=== PATIENT | male | born 1990 | race Two or more races ===

== ENCOUNTER 2017-06-07 12:48 | Emergency (ER) | payer MEDICAID ==
[~2017-06-07] VITALS: Ht 180.3 cm; Wt 72.4 kg
[2017-06-07 13:48] LABS: HEMATOCRIT 46.2 % (39.2-51.8); HEMOGLOBIN 15.5 g/dL (13.7-18.0); WHITE BLOOD COUNT 7.3 x10^3/uL (3.4-10)
[2017-06-07 14:00] LABS: BLOOD UREA NITROGEN 13 mg/dL (7-18)
[2017-06-07 14:03] LABS: ASPARTATE AMINO TRANSFERASE 30 U/L (15-37)
[2017-06-07 16:38] LABS: IS PT STATUS REG ER OR PRE ER? YES
[2017-06-07 17:41] VITALS: BP 122/93
== END 2017-06-07 17:43 | disposition home or self-care (01) ==
LOC: ED 17:30
DX: R07.89 Other chest pain (principal); F15.10 Other stimulant abuse, uncomplicated; F41.9 Anxiety disorder, unspecified; Z88.0 Allergy status to penicillin
CPT/HCPCS: 36415; 71020; 80053; 83690; 84484; 85025; 93005; 99285

== ENCOUNTER 2017-06-17 21:52 | Inpatient (IN) | payer MEDICAID ==
[~2017-06-17] VITALS: Ht 180.3 cm; Wt 79.9 kg
[2017-06-17] MEDS ORDERED: ABAC1TAB14 PO (22:21)
[2017-06-17] MEDS ORDERED: MORPHINE SULFATE 4 MG/ML, 1ML ONE (22:24)
[2017-06-17] MEDS ORDERED: ONDANSETRON 2MG/ML, 2ML ONE (22:24)
[2017-06-17] MEDS ORDERED: ONDANSETRON 2MG/ML, 2ML IVPush ONE (22:30)
[2017-06-17] MEDS ORDERED: METOCLOPRAMIDE 5 MG/ML, 2ML IVPush ONE (22:30)
[2017-06-17] MEDS ORDERED: DIPHENHYDRAMINE 50 MG/ML, 1ML IVPush ONE (22:30)
[2017-06-17] MEDS ORDERED: MORPHINE SULFATE 4 MG/ML, 1ML IVPush PRN (22:30)
[2017-06-17] MEDS ORDERED: METOCLOPRAMIDE 5 MG/ML, 2ML ONE (22:45)
[2017-06-17] MEDS ORDERED: DIPHENHYDRAMINE 50 MG/ML, 1ML ONE (22:45)
[2017-06-17 22:48] LABS: HEMATOCRIT 43.1 % (39.2-51.8); HEMOGLOBIN 14.4 g/dL (13.7-18.0); WHITE BLOOD COUNT 11.8 x10^3/uL (3.4-10)
[2017-06-17 23:00] LABS: ASPARTATE AMINO TRANSFERASE 40 U/L (15-37); BLOOD UREA NITROGEN 26 mg/dL (7-18)
[2017-06-18] MEDS ORDERED: SODIUM CHLORIDE 0.9% 1,000ML IVBOLUS ONE (00:30)
[2017-06-18 01:49] LABS: DAU SCREEN DISCLAIMER
[2017-06-18] MEDS ORDERED: ONDANSETRON 2MG/ML, 2ML IVPush PRN (02:30)
[2017-06-18] MEDS ORDERED: ONDANSETRON ODT 4 MG PO PRN (02:30)
[2017-06-18] MEDS ORDERED: BISACODYL 10 MG SUPP PR PRN (02:30)
[2017-06-18] MEDS ORDERED: morphine SULFATE 10 MG/ML, 1ML IVPush PRN (02:30)
[2017-06-18] MEDS ORDERED: LABETALOL 5MG/ML, 20ML IVPush PRN (02:30)
[2017-06-18] MEDS ORDERED: PHARMACY MAY ADJ FOR RENAL FX MC PRN (02:30)
[2017-06-18] MEDS ORDERED: GUAIFENESIN/DM 200-20MG, 10ML UDC PO PRN (02:30)
[2017-06-18 02:52] VITALS: BP 144/89
[2017-06-18] MEDS: SODIUM CHLORIDE 0.9% 1,000 ML IV SCH ×3 (04:13→21:42)
[2017-06-18 06:26] LABS: ASPARTATE AMINO TRANSFERASE 29 U/L (15-37); BLOOD UREA NITROGEN 24 mg/dL (7-18)
[2017-06-18 06:36] LABS: HEMATOCRIT 39.5 % (39.2-51.8); HEMOGLOBIN 13.2 g/dL (13.7-18.0)
[2017-06-18 07:02] VITALS: BP 124/72
[2017-06-18] MEDS ORDERED: Abacavir/Dolutegravir/Lamivudi (Triumeq Tablet) HOMEMEDPO SCH (09:00)
[2017-06-18] MEDS: HYDROcodone/APAP 5/325 TABLET PO PRN ×2 (09:12→14:21)
[2017-06-18] MEDS: HEPARIN 5,000 UNITS/ML, 1ML SQ SCH ×2 (09:13→16:35)
[2017-06-18] MEDS: SENNA/DOCUSATE TABLET PO SCH (09:13)
[2017-06-18] MEDS ORDERED: PHARMACY INSTRUCTION MC PRN (10:00)
[2017-06-18] MEDS ORDERED: GADOBUTROL 7.5 MMOL/7.5 ML PFS ONE (10:33)
[2017-06-18] MEDS: NICOTINE 14MG/24 HR PATCH.TD24 TD SCH (11:19)
[2017-06-18] MEDS: ABACAVIR 300 MG TABLET PO SCH (11:20)
[2017-06-18] MEDS: LAMIVUDINE 150 MG TABLET PO SCH (11:20)
[2017-06-18 16:23] VITALS: BP 141/75
[2017-06-18 18:52] VITALS: BP 142/88
[2017-06-19] MEDS: HEPARIN 5,000 UNITS/ML, 1ML SQ SCH ×4 (00:15→15:04)
[2017-06-19 01:41] VITALS: BP 141/89
[2017-06-19 04:41] LABS: HEMATOCRIT 38.6 % (39.2-51.8); HEMOGLOBIN 12.6 g/dL (13.7-18.0); WHITE BLOOD COUNT 7.4 x10^3/uL (3.4-10)
[2017-06-19 04:51] LABS: BLOOD UREA NITROGEN 19 mg/dL (7-18)
[2017-06-19] MEDS: SODIUM CHLORIDE 0.9% 1,000 ML IV SCH ×3 (05:37→22:11)
[2017-06-19 09:00] VITALS: BP 150/92
[2017-06-19] MEDS: HYDROcodone/APAP 5/325 TABLET PO PRN ×3 (09:53→22:10)
[2017-06-19] MEDS: LAMIVUDINE 150 MG TABLET PO SCH (09:53)
[2017-06-19] MEDS: ABACAVIR 300 MG TABLET PO SCH (09:53)
[2017-06-19] MEDS: SENNA/DOCUSATE TABLET PO SCH (09:53)
[2017-06-19] MEDS: NICOTINE 14MG/24 HR PATCH.TD24 TD SCH (09:53)
[2017-06-19 12:48] VITALS: BP 154/89
[2017-06-19 14:31] VITALS: BP 150/90
[2017-06-19 19:35] VITALS: BP 160/110
[2017-06-20 00:07] VITALS: BP 130/79
[2017-06-20] MEDS: HYDROcodone/APAP 5/325 TABLET PO PRN ×3 (02:22→20:55)
[2017-06-20 05:20] LABS: HEMATOCRIT 35.1 % (39.2-51.8); HEMOGLOBIN 11.6 g/dL (13.7-18.0); WHITE BLOOD COUNT 6.4 x10^3/uL (3.4-10)
[2017-06-20 05:30] LABS: BLOOD UREA NITROGEN 14 mg/dL (7-18)
[2017-06-20 05:32] LABS: ASPARTATE AMINO TRANSFERASE 25 U/L (15-37)
[2017-06-20] MEDS: SODIUM CHLORIDE 0.9% 1,000 ML IV SCH ×3 (05:46→20:55)
[2017-06-20 06:59] VITALS: BP 132/86
[2017-06-20] MEDS: HEPARIN 5,000 UNITS/ML, 1ML SQ SCH ×4 (08:00→22:30)
[2017-06-20] MEDS: SENNA/DOCUSATE TABLET PO SCH (09:00)
[2017-06-20] MEDS: ABACAVIR 300 MG TABLET PO SCH (09:03)
[2017-06-20] MEDS: NICOTINE 14MG/24 HR PATCH.TD24 TD SCH (09:04)
[2017-06-20] MEDS: LAMIVUDINE 150 MG TABLET PO SCH (09:04)
[2017-06-20 12:45] VITALS: BP 148/90
[2017-06-20 17:52] LABS: GLUCOSE, CSF 47 mg/dL (40-80)
[2017-06-20 20:45] VITALS: BP 159/101
[2017-06-21] MEDS: SODIUM CHLORIDE 0.9% 1,000 ML IV SCH ×3 (05:35→22:02)
[2017-06-21 08:00] VITALS: BP 148/92
[2017-06-21] MEDS: HEPARIN 5,000 UNITS/ML, 1ML SQ SCH ×3 (08:00→23:09)
[2017-06-21 08:18] LABS: BLOOD UREA NITROGEN 13 mg/dL (7-18)
[2017-06-21 08:20] LABS: HEMATOCRIT 35.3 % (39.2-51.8); HEMOGLOBIN 11.6 g/dL (13.7-18.0); WHITE BLOOD COUNT 7.3 x10^3/uL (3.4-10)
[2017-06-21] MEDS: LAMIVUDINE 150 MG TABLET PO SCH (09:00)
[2017-06-21] MEDS: ABACAVIR 300 MG TABLET PO SCH (09:00)
[2017-06-21] MEDS: SENNA/DOCUSATE TABLET PO SCH (09:00)
[2017-06-21] MEDS: NICOTINE 14MG/24 HR PATCH.TD24 TD SCH (10:00)
[2017-06-21 14:00] VITALS: BP 124/73
[2017-06-21 18:43] VITALS: BP_SYST 153; BP_SYST 159; BP_DIAS 83; BP_DIAS 90
[2017-06-21] MEDS: HYDROcodone/APAP 5/325 TABLET PO PRN (22:02)
[2017-06-22 01:15] VITALS: BP 147/80
[2017-06-22 05:45] LABS: BLOOD UREA NITROGEN 14 mg/dL (7-18)
[2017-06-22] MEDS: SODIUM CHLORIDE 0.9% 1,000 ML IV SCH (06:31)
[2017-06-22 07:27] VITALS: BP 145/93
[2017-06-22] MEDS: HEPARIN 5,000 UNITS/ML, 1ML SQ SCH ×2 (08:00→15:57)
[2017-06-22] MEDS: SENNA/DOCUSATE TABLET PO SCH (08:42)
[2017-06-22] MEDS: ABACAVIR 300 MG TABLET PO SCH (08:43)
[2017-06-22] MEDS: LAMIVUDINE 150 MG TABLET PO SCH (08:44)
[2017-06-22] MEDS: NICOTINE 14MG/24 HR PATCH.TD24 TD SCH (10:28)
[2017-06-22 14:35] VITALS: BP 163/94
[2017-06-22 18:50] VITALS: BP 156/92
[2017-06-22] MEDS: HYDROcodone/APAP 5/325 TABLET PO PRN (21:01)
[2017-06-23 01:15] VITALS: BP 145/91
[2017-06-23 05:20] LABS: BLOOD UREA NITROGEN 20 mg/dL (7-18)
[2017-06-23 05:30] LABS: HEMATOCRIT 38.6 % (39.2-51.8); HEMOGLOBIN 12.8 g/dL (13.7-18.0); WHITE BLOOD COUNT 9.3 x10^3/uL (3.4-10)
[2017-06-23 08:02] VITALS: BP 149/90
[2017-06-23] MEDS: HEPARIN 5,000 UNITS/ML, 1ML SQ SCH ×4 (09:32→23:20)
[2017-06-23] MEDS: LAMIVUDINE 150 MG TABLET PO SCH (09:33)
[2017-06-23] MEDS: SENNA/DOCUSATE TABLET PO SCH (09:34)
[2017-06-23] MEDS: ABACAVIR 300 MG TABLET PO SCH (09:34)
[2017-06-23] MEDS: NICOTINE 14MG/24 HR PATCH.TD24 TD SCH (09:35)
[2017-06-23] MEDS: CYCLOBENZAPRINE 10 MG TABLET PO SCH ×3 (13:26→23:19)
[2017-06-23 14:00] VITALS: BP 150/85
[2017-06-23] MEDS ORDERED: AMLODIPINE 5 MG TABLET PO ONE (16:30)
[2017-06-23] MEDS: SODIUM CHLORIDE 0.9% 1,000 ML IV SCH ×2 (17:01→20:10)
[2017-06-23 18:56] VITALS: BP 154/92
[2017-06-23] MEDS: HYDROcodone/APAP 5/325 TABLET PO PRN (23:19)
[2017-06-24 01:15] VITALS: BP 143/87
[2017-06-24] MEDS: SODIUM CHLORIDE 0.9% 1,000 ML IV SCH ×4 (02:50→22:50)
[2017-06-24 05:34] LABS: BLOOD UREA NITROGEN 25 mg/dL (7-18)
[2017-06-24] MEDS: HEPARIN 5,000 UNITS/ML, 1ML SQ SCH ×3 (08:00→23:09)
[2017-06-24 08:10] VITALS: BP 147/86
[2017-06-24] MEDS: SENNA/DOCUSATE TABLET PO SCH (09:00)
[2017-06-24] MEDS: LAMIVUDINE 150 MG TABLET PO SCH (09:45)
[2017-06-24] MEDS: CYCLOBENZAPRINE 10 MG TABLET PO SCH ×3 (09:45→20:59)
[2017-06-24] MEDS: ABACAVIR 300 MG TABLET PO SCH (09:45)
[2017-06-24] MEDS ORDERED: CYCL-259 PO (09:49)
[2017-06-24] MEDS: NICOTINE 14MG/24 HR PATCH.TD24 TD SCH (10:00)
[2017-06-24] MEDS ORDERED: OMNIPAQUE 350 MG/ML, 100ML BOTTLE ONE (11:24)
[2017-06-24 15:47] VITALS: BP 140/84
[2017-06-24 20:55] VITALS: BP 154/93
[2017-06-25 02:04] VITALS: BP 117/66
[2017-06-25] MEDS: SODIUM CHLORIDE 0.9% 1,000 ML IV SCH ×2 (05:20→12:10)
[2017-06-25 06:10] LABS: HEMATOCRIT 40.2 % (39.2-51.8); HEMOGLOBIN 13.3 g/dL (13.7-18.0); WHITE BLOOD COUNT 9.6 x10^3/uL (3.4-10)
[2017-06-25 06:17] LABS: BLOOD UREA NITROGEN 22 mg/dL (7-18)
[2017-06-25 07:13] VITALS: BP 123/71
[2017-06-25] MEDS: HEPARIN 5,000 UNITS/ML, 1ML SQ SCH (08:00)
[2017-06-25] MEDS: SENNA/DOCUSATE TABLET PO SCH (09:00)
[2017-06-25] MEDS: CYCLOBENZAPRINE 10 MG TABLET PO SCH (09:49)
[2017-06-25] MEDS: NICOTINE 14MG/24 HR PATCH.TD24 TD SCH (09:49)
[2017-06-25] MEDS: ABACAVIR 300 MG TABLET PO SCH (09:49)
[2017-06-25] MEDS: LAMIVUDINE 150 MG TABLET PO SCH (09:49)
[2017-06-25] MEDS ORDERED: PNEUMOCOCCAL 23 VACCINE IM-VACC ONE (12:00)
[2017-06-25 13:04] VITALS: BP 145/94
== END 2017-06-25 13:26 | disposition home or self-care (01) | DRG 682 ==
LOC: ED 22:19 → 4NOR 06-18 01:18 → 4WST 06-19 13:16
PROVIDERS: ADMIT Hospitalist; ATTEND Hospitalist
PROC: 009U3ZZ Drainage of Spinal Canal, Percutaneous Approach (ICD-10-PCS; principal; 2017-06-21)
DX: N17.0 Acute kidney failure with tubular necrosis (principal); B20 Human immunodeficiency virus [HIV] disease; G93.5 Compression of brain; E43 Unspecified severe protein-calorie malnutrition; D47.3 Essential (hemorrhagic) thrombocythemia; E11.9 Type 2 diabetes mellitus without complications; I10 Essential (primary) hypertension; E87.1 Hypo-osmolality and hyponatremia; D64.9 Anemia, unspecified; F17.210 Nicotine dependence, cigarettes, uncomplicated; H53.149 Visual discomfort, unspecified; G43.009 Migraine without aura, not intractable, without status migrainosus; Z80.0 Family history of malignant neoplasm of digestive organs; Z82.3 Family history of stroke; Z82.49 Family history of ischemic heart disease and other diseases of the circulatory system; Z88.0 Allergy status to penicillin; Z88.1 Allergy status to other antibiotic agents; Z68.24 Body mass index [BMI] 24.0-24.9, adult
CPT/HCPCS: 36415; 62270; 70450; 70491; 70553; 71010; 76770; 80048; 80053; 80061; 80307; 81003; 82040; 82570; 82945; 83036; 83735; 84156; 84157; 84300; 85025; 85610; 86788; 86789; 87040; 87210; 87529; 89051; 90732; 96361; 96374; 96375; A9585; J1644; J2405; Q9967; J1200; J2765; J7030

== ENCOUNTER 2017-12-31 13:43 | Inpatient (IN) | payer MEDICAID ==
[~2017-12-31] VITALS: Ht 180.3 cm; Wt 76.8 kg
[~2017-12-31 13:43] MED LIST: ABAC1TAB14 PO; CYCL-259 PO
[2017-12-31] MEDS ORDERED: SODIUM CHLORIDE 0.9% 1,000 ML IV ONE (14:32)
[2017-12-31] MEDS ORDERED: ONDANSETRON 2MG/ML, 2ML ONE (14:55)
[2017-12-31] MEDS ORDERED: HYDROmorphone 1 MG/ML, 1ML ONE (14:56)
[2017-12-31 15:00] LABS: MICROSCOPIC AUTO
[2017-12-31] MEDS ORDERED: SODIUM CHLORIDE FLUSH 10ML SYR IVF ONE (15:00)
[2017-12-31] MEDS ORDERED: ONDANSETRON 2MG/ML, 2ML IVPush ONE (15:00)
[2017-12-31] MEDS ORDERED: HYDROmorphone 1 MG/ML, 1ML IVPush PRN (15:00)
[2017-12-31] MEDS ORDERED: SODIUM CHLORIDE 0.9% 1,000ML IVBOLUS ONE (15:00)
[2017-12-31 15:03] LABS: CULTURE INDICATED? YES
[2017-12-31 15:04] LABS: BASOPHILS # (AUTO) 0.05 x10^3/uL (0-0.1); BASOPHILS % (AUTO) 1 % (0-1); EOSINOPHILS # (AUTO) 0.11 x10^3/uL (0-0.4); EOSINOPHILS % (AUTO) 1 % (1-7); LYMPHOCYTES # (AUTO) 2.34 x10^3/uL (1-3.4); LYMPHOCYTES % (AUTO) 22 % (22-44); MD NO; MEAN CORPUSCULAR HEMOGLOBIN 30.4 pg (27.5-34.5); MEAN CORPUSCULAR HGB CONC 33.5 g/dL (33.2-36.2); MEAN CORPUSCULAR VOLUME 90.8 fL (81-97); MONOCYTES % (AUTO) 8 % (2-9); NEUTROPHILS # (AUTO) 7.41 x10^3/uL (1.8-6.8); NEUTROPHILS % (AUTO) 69 % (42-75); PLATELET COUNT 516 x10^3/uL (130-400); RED BLOOD COUNT 4.79 x10^6/uL (4.38-5.82); RED CELL DISTRIBUTION WIDTH 15.2 % (9.4-14.8)
[2017-12-31 15:13] LABS: ALBUMIN 3.5 g/dL (3.4-5.0); ANION GAP 8 mmol/L (5-15); CHLORIDE 106 mmol/L (98-107); CREATININE 0.78 mg/dL (0.7-1.3)
[2017-12-31 15:20] LABS: ALANINE AMINOTRANSFERASE 1228 U/L (12-78); ALKALINE PHOSPHATASE 133 U/L (45-117); TOTAL PROTEIN 7.7 g/dL (6.4-8.2)
[2017-12-31 15:59] LABS: INTERNATIONAL NORMALIZED RATIO 0.93 (0.93-1.1); PROTHROMBIN TIME 9.7 Seconds (9.6-11.5)
[2017-12-31] MEDS ORDERED: POLYETHYLENE GLYCOL 17 GM PACKET PO PRN (17:00)
[2017-12-31] MEDS ORDERED: DOCUSATE 100 MG CAPSULE PO PRN (17:00)
[2017-12-31] MEDS ORDERED: ONDANSETRON 2MG/ML, 2ML IVPush PRN (17:00)
[2017-12-31 18:07] VITALS: BP 133/80
[2017-12-31 18:35] VITALS: BP 125/79
[2017-12-31] MEDS: FAMOTIDINE 20 MG TABLET PO SCH (21:44)
[2017-12-31] MEDS: NS + 20MEQ KCL 1,000 ML IV SCH (21:44)
[2017-12-31] MEDS: ENOXAPARIN 40 MG/0.4 ML SQ SCH (21:45)
[2017-12-31] MEDS: OXYcodone IR 5MG TABLET PO PRN (21:49)
[2018-01-01 02:26] VITALS: BP 110/60
[2018-01-01 05:46] LABS: CHLORIDE 106 mmol/L (98-107)
[2018-01-01 05:49] LABS: ALANINE AMINOTRANSFERASE 841 U/L (12-78); ALBUMIN 2.7 g/dL (3.4-5.0); ALKALINE PHOSPHATASE 119 U/L (45-117); ANION GAP 8 mmol/L (5-15); BILIRUBIN,TOTAL 0.9 mg/dL (0.2-1.0); CALCIUM 8.2 mg/dL (8.5-10.1); CREATININE 0.76 mg/dL (0.7-1.3); TOTAL PROTEIN 6.2 g/dL (6.4-8.2)
[2018-01-01] MEDS: NS + 20MEQ KCL 1,000 ML IV SCH (06:17)
[2018-01-01 06:58] VITALS: BP 128/79
[2018-01-01] MEDS: FAMOTIDINE 20 MG TABLET PO SCH ×2 (07:41→20:26)
[2018-01-01] MEDS: LAMIVUDI HOMEMEDPO SCH (07:41)
[2018-01-01] MEDS: ABACAVIR HOMEMEDPO SCH (07:41)
[2018-01-01] MEDS: DOLUTEGRAVIR HOMEMEDPO SCH (07:41)
[2018-01-01 13:11] VITALS: BP 136/80
[2018-01-01 19:22] VITALS: BP 121/72
[2018-01-01] MEDS: ENOXAPARIN 40 MG/0.4 ML SQ SCH (20:32)
[2018-01-02 00:03] VITALS: BP 144/85
[2018-01-02] MEDS ORDERED: DIPHENHYDRAMINE 50 MG CAPSULE PO PRN (01:00)
[2018-01-02 05:33] LABS: CALCIUM 8.9 mg/dL (8.5-10.1); CHLORIDE 107 mmol/L (98-107)
[2018-01-02 05:39] LABS: ALANINE AMINOTRANSFERASE 685 U/L (12-78); ALBUMIN 3.1 g/dL (3.4-5.0); ALKALINE PHOSPHATASE 142 U/L (45-117); ANION GAP 8 mmol/L (5-15); BILIRUBIN,TOTAL 0.4 mg/dL (0.2-1.0); CREATININE 0.72 mg/dL (0.7-1.3); TOTAL PROTEIN 7.1 g/dL (6.4-8.2)
[2018-01-02 07:37] VITALS: BP 124/79
[2018-01-02] MEDS: FAMOTIDINE 20 MG TABLET PO SCH ×2 (09:02→21:16)
[2018-01-02] MEDS: LAMIVUDI HOMEMEDPO SCH (09:03)
[2018-01-02] MEDS: DOLUTEGRAVIR HOMEMEDPO SCH (09:03)
[2018-01-02] MEDS: ABACAVIR HOMEMEDPO SCH (09:03)
[2018-01-02 12:25] LABS: ALANINE AMINOTRANSFERASE 638 U/L (12-78); ALBUMIN 3.1 g/dL (3.4-5.0); ANION GAP 8 mmol/L (5-15); CHLORIDE 103 mmol/L (98-107); CREATININE 0.86 mg/dL (0.7-1.3)
[2018-01-02 12:27] LABS: ALKALINE PHOSPHATASE 126 U/L (45-117); BILIRUBIN,TOTAL 0.4 mg/dL (0.2-1.0); TOTAL PROTEIN 7.2 g/dL (6.4-8.2)
[2018-01-02 13:32] VITALS: BP 144/84
[2018-01-02] MEDS: NICOTINE 21 MG/24 HR PATCH.TD24 TD SCH (17:26)
[2018-01-02 20:03] VITALS: BP 150/88
[2018-01-02] MEDS: ENOXAPARIN 40 MG/0.4 ML SQ SCH (21:15)
[2018-01-02] MEDS: DIPHENHYDRAMINE 50 MG CAPSULE PO PRN (21:16)
[2018-01-02] MEDS: MELATONIN 5 MG TABLET PO SCH (21:16)
[2018-01-03 02:11] VITALS: BP 132/74
[2018-01-03 07:25] VITALS: BP 125/78
[2018-01-03] MEDS: FAMOTIDINE 20 MG TABLET PO SCH ×2 (10:27→20:04)
[2018-01-03] MEDS: NICOTINE 21 MG/24 HR PATCH.TD24 TD SCH (10:28)
[2018-01-03 12:25] VITALS: BP 139/100
[2018-01-03] MEDS ORDERED: LOPERAMIDE 2 MG CAPSULE PO PRN (14:00)
[2018-01-03] MEDS ORDERED: CHOLESTYRAMINE LIGHT 4GM PACKET PO SCH (17:00)
[2018-01-03 19:33] LABS: CLOSTRIDIUM DIFFICILE ANTIGEN NEGATIVE; CLOSTRIDIUM DIFFICILE TOXIN NEGATIVE (Negative)
[2018-01-03 20:00] VITALS: BP 157/100
[2018-01-03] MEDS: ENOXAPARIN 40 MG/0.4 ML SQ SCH (20:04)
[2018-01-03] MEDS: DIPHENHYDRAMINE 50 MG CAPSULE PO PRN (20:04)
[2018-01-03] MEDS: MELATONIN 5 MG TABLET PO SCH (20:04)
[2018-01-04 01:18] VITALS: BP 149/96
[2018-01-04 07:09] LABS: ALANINE AMINOTRANSFERASE 402 U/L (12-78); ALBUMIN 3.4 g/dL (3.4-5.0); ANION GAP 6 mmol/L (5-15); CALCIUM 9.5 mg/dL (8.5-10.1); CHLORIDE 105 mmol/L (98-107); CREATININE 0.79 mg/dL (0.7-1.3)
[2018-01-04 07:11] LABS: ALKALINE PHOSPHATASE 105 U/L (45-117); BILIRUBIN,TOTAL 0.5 mg/dL (0.2-1.0); TOTAL PROTEIN 7.5 g/dL (6.4-8.2)
[2018-01-04] MEDS ORDERED: IBUP-1221 PO (07:15)
[2018-01-04] MEDS ORDERED: ACET325T26 PO (07:15)
[2018-01-04] MEDS: FAMOTIDINE 20 MG TABLET PO SCH (09:04)
[2018-01-04] MEDS: NICOTINE 21 MG/24 HR PATCH.TD24 TD SCH (09:04)
[2018-01-04] MEDS: OXYcodone IR 5MG TABLET PO PRN (09:08)
== END 2018-01-04 12:10 | disposition home or self-care (01) | DRG 443 ==
LOC: SUATTDRO 16:33 → ED 16:35 → EDIP 16:39 → ED 16:52 → 3NE 17:17 → DCLOUNGE 01-04 11:58
PROVIDERS: ADMIT Family Medicine; ATTEND Family Medicine
DX: B17.9 Acute viral hepatitis, unspecified (principal); F17.200 Nicotine dependence, unspecified, uncomplicated; I10 Essential (primary) hypertension; G43.909 Migraine, unspecified, not intractable, without status migrainosus; R31.9 Hematuria, unspecified; T50.995A Adverse effect of other drugs, medicaments and biological substances, initial encounter; R30.0 Dysuria; Z59.0 Homelessness; Z79.899 Other long term (current) drug therapy; Y92.89 Other specified places as the place of occurrence of the external cause; Z88.0 Allergy status to penicillin; Z88.1 Allergy status to other antibiotic agents
CPT/HCPCS: 36415; 76700; 80053; 81001; 82140; 83605; 83690; 83735; 85025; 85610; 85730; 86704; 86706; 86708; 86803; 87086; 87324; 87340; 87522; 96361; 96374; 96375; J1170; J1650; J2405; J3480; J7030

== ENCOUNTER 2018-01-22 10:30 | Emergency (ER) | payer MEDICAID ==
[~2018-01-22] VITALS: Ht 180.3 cm; Wt 74.0 kg
[~2018-01-22 10:30] MED LIST changes: +ACET325T26 PO; +IBUP-1221 PO
[2018-01-22] MEDS ORDERED: ABAC1TAB14 PO (11:51)
[2018-01-22 12:59] VITALS: BP 128/84
== END 2018-01-22 14:11 | disposition home or self-care (01) ==
LOC: ED 14:05
DX: S00.93XA Contusion of unspecified part of head, initial encounter (principal); G43.909 Migraine, unspecified, not intractable, without status migrainosus; J32.2 Chronic ethmoidal sinusitis; J32.3 Chronic sphenoidal sinusitis; I10 Essential (primary) hypertension; Y04.0XXA Assault by unarmed brawl or fight, initial encounter; Y93.89 Activity, other specified; Y99.8 Other external cause status; Y92.89 Other specified places as the place of occurrence of the external cause
CPT/HCPCS: 70450; 72125; 99284

== ENCOUNTER 2018-03-06 19:59 | Emergency (ER) | payer MEDICAID ==
[~2018-03-06] VITALS: Ht 180.3 cm; Wt 78.0 kg
[2018-03-06 20:30] LABS: BASOPHILS # (AUTO) 0.04 x10^3/uL (0-0.1); BASOPHILS % (AUTO) 1 % (0-1); EOSINOPHILS % (AUTO) 2 % (1-7); LYMPHOCYTES # (AUTO) 3.44 x10^3/uL (1-3.4); LYMPHOCYTES % (AUTO) 37 % (22-44); MD NO; MEAN CORPUSCULAR HEMOGLOBIN 31.5 pg (27.5-34.5); MEAN CORPUSCULAR HGB CONC 34.1 g/dL (33.2-36.2); MEAN CORPUSCULAR VOLUME 92.4 fL (81-97); MEAN PLATELET VOLUME 6.5 fL (7.4-10.4); MONOCYTES # (AUTO) 0.62 x10^3/uL (0.2-0.8); MONOCYTES % (AUTO) 7 % (2-9); NEUTROPHILS # (AUTO) 4.95 x10^3/uL (1.8-6.8); NEUTROPHILS % (AUTO) 54 % (42-75); PLATELET COUNT 368 x10^3/uL (130-400); RED BLOOD COUNT 4.57 x10^6/uL (4.38-5.82); RED CELL DISTRIBUTION WIDTH 13.7 % (9.4-14.8)
[2018-03-06 20:41] LABS: ALBUMIN 3.5 g/dL (3.4-5.0); ANION GAP 6 mmol/L (5-15); CALCIUM 9.1 mg/dL (8.5-10.1); CHLORIDE 108 mmol/L (98-107)
[2018-03-06 20:42] LABS: CREATININE 0.86 mg/dL (0.7-1.3)
[2018-03-06] MEDS ORDERED: POTASSIUM CHLORIDE 20 MEQ TAB.ER.PRT ONE (21:27)
[2018-03-06] MEDS ORDERED: POTASSIUM CHLORIDE 20 MEQ TAB.ER.PRT PO ONE (21:30)
[2018-03-06 21:34] VITALS: BP 142/84
== END 2018-03-06 22:00 | disposition home or self-care (01) ==
LOC: ED 21:54
DX: R06.00 Dyspnea, unspecified (principal); G43.909 Migraine, unspecified, not intractable, without status migrainosus; I10 Essential (primary) hypertension; J45.909 Unspecified asthma, uncomplicated
CPT/HCPCS: 36415; 71046; 80048; 82040; 85025; 93005; 99285

== ENCOUNTER 2018-07-26 21:31 | Emergency (ER) | payer MEDICAID ==
[~2018-07-26] VITALS: Ht 180.3 cm; Wt 89.0 kg
[2018-07-26] MEDS ORDERED: PROCHLORPERAZINE 5 MG/ML, 2ML ONE (21:57)
[2018-07-26] MEDS ORDERED: DIPHENHYDRAMINE 50 MG/ML, 1ML ONE (21:57)
[2018-07-26] MEDS ORDERED: KETOROLAC 30 MG/1 ML ONE (21:58)
[2018-07-26] MEDS ORDERED: PROCHLORPERAZINE 5 MG/ML, 2ML IVPush ONE (22:00)
[2018-07-26] MEDS ORDERED: DIPHENHYDRAMINE 50 MG/ML, 1ML IVPush ONE (22:00)
[2018-07-26] MEDS ORDERED: KETOROLAC 30 MG/1 ML IVPush ONE (22:00)
[2018-07-26 23:02] VITALS: BP 131/80
== END 2018-07-26 23:21 | disposition home or self-care (01) ==
LOC: ED 23:08
DX: G43.009 Migraine without aura, not intractable, without status migrainosus (principal)
CPT/HCPCS: 96374; 96375; 99284; J0780; J1200; J1885

== ENCOUNTER 2018-09-03 12:41 | Emergency (ER) | payer MEDICAID ==
[~2018-09-03] VITALS: Ht 180.3 cm; Wt 90.6 kg
[2018-09-03] MEDS ORDERED: SUMA50TA4 PO (14:33)
[2018-09-03] MEDS ORDERED: DOXY100T9 PO (14:34)
[2018-09-03] MEDS ORDERED: ONDA8TAB12 PO (14:34)
[2018-09-03] MEDS ORDERED: BICT1TAB PO (14:36)
[2018-09-03 14:51] LABS: BASOPHILS # (AUTO) 0.02 x10^3/uL (0-0.1); BASOPHILS % (AUTO) 0 % (0-1); EOSINOPHILS # (AUTO) 0.17 x10^3/uL (0-0.4); EOSINOPHILS % (AUTO) 2 % (1-7); LYMPHOCYTES # (AUTO) 2.91 x10^3/uL (1-3.4); LYMPHOCYTES % (AUTO) 41 % (22-44); MD NO; MEAN CORPUSCULAR HEMOGLOBIN 31.7 pg (27.5-34.5); MEAN CORPUSCULAR HGB CONC 34.2 g/dL (33.2-36.2); MEAN CORPUSCULAR VOLUME 92.8 fL (81-97); MEAN PLATELET VOLUME 6.7 fL (7.4-10.4); MONOCYTES # (AUTO) 0.74 x10^3/uL (0.2-0.8); MONOCYTES % (AUTO) 10 % (2-9); NEUTROPHILS # (AUTO) 3.24 x10^3/uL (1.8-6.8); NEUTROPHILS % (AUTO) 46 % (42-75); PLATELET COUNT 334 x10^3/uL (130-400); RED BLOOD COUNT 5.25 x10^6/uL (4.38-5.82)
[2018-09-03 15:01] LABS: ALBUMIN 3.8 g/dL (3.4-5.0); ANION GAP 7 mmol/L (5-15); CHLORIDE 106 mmol/L (98-107)
[2018-09-03 15:04] LABS: ALANINE AMINOTRANSFERASE 47 U/L (12-78); ALKALINE PHOSPHATASE 50 U/L (45-117); BILIRUBIN,TOTAL 0.4 mg/dL (0.2-1.0); CREATININE 0.97 mg/dL (0.7-1.3); TOTAL PROTEIN 7.7 g/dL (6.4-8.2)
[2018-09-03] MEDS ORDERED: KETOROLAC 30 MG/1 ML ONE (15:16)
[2018-09-03] MEDS ORDERED: KETOROLAC 30 MG/1 ML IM ONE (15:30)
[2018-09-03 16:29] LABS: MICROSCOPIC AUTO
[2018-09-03 16:32] LABS: CULTURE INDICATED? NO
[2018-09-03 16:49] VITALS: BP 130/88
== END 2018-09-03 16:52 | disposition home or self-care (01) ==
LOC: ED 14:04
DX: R10.9 Unspecified abdominal pain (principal); G43.909 Migraine, unspecified, not intractable, without status migrainosus; I10 Essential (primary) hypertension; Z21 Asymptomatic human immunodeficiency virus [HIV] infection status; F17.200 Nicotine dependence, unspecified, uncomplicated
CPT/HCPCS: 36415; 74176; 80053; 81001; 83605; 83690; 85025; 96372; 99285; J1885

== ENCOUNTER 2019-03-28 23:00 | Emergency (ER) | payer MEDICAID ==
[~2019-03-28] VITALS: Ht 180.3 cm; Wt 89.9 kg
[~2019-03-28 23:00] MED LIST changes: +BICT1TAB PO; +DOXY100T9 PO; +ONDA8TAB12 PO; +SUMA50TA4 PO
[2019-03-28] MEDS ORDERED: SODIUM CHLORIDE FLUSH 10ML SYR IVF ONE (23:30)
[2019-03-28] MEDS ORDERED: METOCLOPRAMIDE 5 MG/ML, 2ML IVPush ONE (23:30)
[2019-03-28] MEDS ORDERED: DIPHENHYDRAMINE 50 MG/ML, 1ML IVPush ONE (23:30)
[2019-03-28] MEDS ORDERED: METOCLOPRAMIDE 5 MG/ML, 2ML ONE (23:34)
[2019-03-28] MEDS ORDERED: DIPHENHYDRAMINE 50 MG/ML, 1ML ONE (23:34)
--- NOTE | 2019-03-28 23:42 | NUR ---
PT HERE FOR DOOLEY TO BASE OF SKULL THAT STARTED AT 2100. PT HAS HX OF MIGRAINES BUT DOOLEY FEEL DIFFERENT. PIV PLACED. PT MEDICATED. VSS. CALL LIGHT IN REACH
--- NOTE | 2019-03-29 | NUR ---
PT TO CT
--- NOTE | 2019-03-29 00:22 | NUR ---
PT STATES FEELS MORE RELAXED BUT HEADACHE IS STILL PRESENT. PT REQUESTING WATER. PT INFORMED NPO UNTIL CT RESULT. PT GIVEN PILLOW PER REQUEST. PT DENIES FURTHER NEEDS AT THIS TIME. VSS
[2019-03-29] MEDS ORDERED: KETOROLAC 30 MG/1 ML IVPush ONE (01:00)
[2019-03-29] MEDS ORDERED: KETOROLAC 30 MG/1 ML ONE (01:13)
--- NOTE | 2019-03-29 01:32 | NUR ---
pt given toradol. pt also given water and crackers. Vss. Call light in reach
[2019-03-29 01:35] VITALS: BP 118/75
--- NOTE | 2019-03-29 02:06 | NUR ---
Patient given discharge instructions and they have confirmed that they understand the instructions. Patient ambulatory with steady gait.
== END 2019-03-29 02:09 | disposition home or self-care (01) ==
LOC: ED 23:35
DX: G43.909 Migraine, unspecified, not intractable, without status migrainosus (principal); R11.2 Nausea with vomiting, unspecified; I10 Essential (primary) hypertension; F17.200 Nicotine dependence, unspecified, uncomplicated; Z21 Asymptomatic human immunodeficiency virus [HIV] infection status
CPT/HCPCS: 70450; 96374; 96375; 99284; J1200; J1885; J2765

== ENCOUNTER 2019-06-02 15:35 | Emergency (ER) | payer MEDICAID ==
[~2019-06-02] VITALS: Ht 180.3 cm; Wt 87.0 kg
[2019-06-02 15:38] VITALS: BP 137/77
== END 2019-06-02 16:12 | disposition home or self-care (01) ==
LOC: ED 16:06
DX: S93.521A Sprain of metatarsophalangeal joint of right great toe, initial encounter (principal); S90.411A Abrasion, right great toe, initial encounter; W18.30XA Fall on same level, unspecified, initial encounter; Y93.39 Activity, other involving climbing, rappelling and jumping off; Y92.830 Public park as the place of occurrence of the external cause; Y99.8 Other external cause status
CPT/HCPCS: 90471; 90715

== ENCOUNTER 2019-08-27 13:02 | Day surgery (SDC) | payer MEDICAID ==
[~2019-08-27] VITALS: Ht 180.3 cm; Wt 92.3 kg
[~2019-08-27 13:02] MED LIST changes: +DOXY-162 PO; -DOXY100T9 PO
--- NOTE | 2019-08-27 13:07 | NUR ---
BIB EMS FOR TROUBLE VOIDING AND LOW ABD PAIN X 2 DAYS. HISTORY OF URETHRAL IMPLANT. BLADDER SCAN OF 110ML
--- NOTE | 2019-08-27 13:19 | NUR ---
BLADDER SCAN 110ML
--- NOTE | 2019-08-27 13:54 | NUR ---
PIV PLACED FROM WHICH LABS OBTAINED
[2019-08-27] MEDS ORDERED: ONDANSETRON 2MG/ML, 2ML IVPush ONE (14:00)
[2019-08-27] MEDS ORDERED: MORPHINE SULFATE 4 MG/ML, 1ML IVPush PRN (14:00)
[2019-08-27 14:02] LABS: BASOPHILS # (AUTO) 0.02 x10^3/uL (0-0.1); BASOPHILS % (AUTO) 0 % (0-1); EOSINOPHILS # (AUTO) 0.13 x10^3/uL (0-0.4); EOSINOPHILS % (AUTO) 1 % (1-7); LYMPHOCYTES # (AUTO) 1.78 x10^3/uL (1-3.4); LYMPHOCYTES % (AUTO) 14 % (22-44); MD NO; MEAN CORPUSCULAR HEMOGLOBIN 31.6 pg (27.5-34.5); MEAN CORPUSCULAR HGB CONC 33.7 g/dL (33.2-36.2); MEAN CORPUSCULAR VOLUME 93.7 fL (81-97); MEAN PLATELET VOLUME 6.8 fL (7.4-10.4); MONOCYTES # (AUTO) 1.39 x10^3/uL (0.2-0.8); MONOCYTES % (AUTO) 11 % (2-9); NEUTROPHILS # (AUTO) 9.85 x10^3/uL (1.8-6.8); NEUTROPHILS % (AUTO) 75 % (42-75); PLATELET COUNT 340 x10^3/uL (130-400); RED BLOOD COUNT 5.09 x10^6/uL (4.38-5.82); RED CELL DISTRIBUTION WIDTH 13.1 % (9.4-14.8)
--- NOTE | 2019-08-27 14:03 | NUR ---
STRAIGHT CATHERIZED FOR 300ML CONCENTRATED URINE. SAMPLE SENT TO LAB
[2019-08-27 14:13] LABS: MICROSCOPIC NOT IND
[2019-08-27 14:16] LABS: ALANINE AMINOTRANSFERASE 27 U/L (12-78); ALBUMIN 3.7 g/dL (3.4-5.0); ANION GAP 7 mmol/L (5-15); CALCIUM 9.1 mg/dL (8.5-10.1); CHLORIDE 104 mmol/L (98-107)
[2019-08-27 14:19] LABS: ALKALINE PHOSPHATASE 73 U/L (45-117); BILIRUBIN,TOTAL 0.5 mg/dL (0.2-1.0); CREATININE 0.87 mg/dL (0.7-1.3); TOTAL PROTEIN 8.1 g/dL (6.4-8.2)
[2019-08-27 14:23] LABS: CULTURE INDICATED? NO
[2019-08-27] MEDS ORDERED: ONDANSETRON 2MG/ML, 2ML ONE ×2 (14:34→16:50)
[2019-08-27] MEDS ORDERED: MORPHINE SULFATE 4 MG/ML, 1ML ONE (14:35)
--- NOTE | 2019-08-27 14:40 | NUR ---
[facility] NOTE: MD HUNTER PAGED FOR SURGICAL CONSULT.
--- NOTE | 2019-08-27 14:52 | NUR ---
PT MEDICATED WITH ZOFRAN AND MORPHINE ORDERED. PT RESTING WITH NO COMPLAINTS.
[2019-08-27] MEDS ORDERED: CEFOTETAN PMX 2GM/50ML 50 ML IV ONE (15:00)
[2019-08-27] MEDS ORDERED: BUPIVACAINE/PF 0.5% ONE (16:19)
[2019-08-27] MEDS ORDERED: EPINEPHRINE 1 MG/ML, 1ML ONE (16:19)
[2019-08-27] MEDS ORDERED: hydrALAzine 20 MG/ML, 1ML IV PRN ×2 (16:30→19:30)
[2019-08-27] MEDS ORDERED: PROMETHAZINE 25 MG/ML, 1ML IV PRN (16:30)
[2019-08-27] MEDS ORDERED: HYDROmorphone 2 MG/ML, 1ML IVPush PRN (16:30)
[2019-08-27] MEDS ORDERED: ACETAMINOPHEN 325 MG TABLET PO PRN ×2 (16:30→19:30)
[2019-08-27] MEDS ORDERED: LABETALOL 5MG/ML, 20ML IV PRN (16:30)
[2019-08-27] MEDS ORDERED: MEPERIDINE/PF 25MG/ML,1ML IVPush PRN (16:30)
[2019-08-27] MEDS ORDERED: ONDANSETRON 2MG/ML, 2ML IV PRN ×2 (16:30→19:30)
[2019-08-27] MEDS ORDERED: FENTANYL PF 100 MCG/2ML IV PRN (16:30)
[2019-08-27] MEDS ORDERED: MIDAZOLAM 1 MG/ML, 2ML ONE (16:32)
[2019-08-27] MEDS ORDERED: FENTANYL PF 250 MCG/5ML ONE (16:33)
[2019-08-27] MEDS ORDERED: ROCURONIUM 10MG/ML,5ML ONE (16:49)
[2019-08-27] MEDS ORDERED: PROPOFOL 10 MG/ML, 20ML ONE (16:49)
[2019-08-27] MEDS ORDERED: KETOROLAC 30 MG/1 ML ONE (16:50)
[2019-08-27] MEDS ORDERED: DEXAMETHASONE 4 MG/ML, 1ML ONE (16:50)
[2019-08-27] MEDS ORDERED: SUCCINYLCHOLINE 20 MG/ML, 10ML ONE (16:53)
[2019-08-27] MEDS ORDERED: EPHEDRINE 50 MG/ML, 1ML ONE (17:12)
[2019-08-27] MEDS: OXYcodone 5 MG/5 ML ORAL.SOL UDC PO PRN ×2 (17:59→18:12)
[2019-08-27] MEDS ORDERED: OXYcodone 5 MG/5 ML ORAL.SOL UDC ONE (18:11)
[2019-08-27 18:47] VITALS: BP 111/69
[2019-08-27] MEDS ORDERED: ENALAPRILAT 1.25 MG/ML, 2ML IV PRN (19:30)
[2019-08-27] MEDS ORDERED: ACETAMINOPHEN 650 MG SUPP PR PRN (19:30)
[2019-08-27] MEDS ORDERED: morphine SULFATE 10 MG/ML, 1ML IV PRN (19:30)
[2019-08-27] MEDS ORDERED: DIPHENHYDRAMINE 25 MG CAPSULE PO PRN (19:30)
[2019-08-27] MEDS ORDERED: DIPHENHYDRAMINE 50 MG/ML, 1ML IV PRN (19:30)
[2019-08-27] MEDS: D5%-0.45NACL+KCL 20MEQ 1,000 ML IV SCH (20:28)
[2019-08-27] MEDS: NICOTINE 14MG/24 HR PATCH.TD24 TD SCH (20:28)
[2019-08-27] MEDS: SODIUM CHLORIDE FLUSH 10ML SYR IVF SCH (20:56)
[2019-08-27] MEDS: ENOXAPARIN 40 MG/0.4 ML SQ SCH (21:09)
[2019-08-28 00:33] VITALS: BP 119/71
[2019-08-28] MEDS: D5%-0.45NACL+KCL 20MEQ 1,000 ML IV SCH (06:00)
[2019-08-28] MEDS: HYDROcodone/APAP 5/325 TABLET PO PRN ×4 (06:59→22:59)
[2019-08-28 07:22] VITALS: BP 103/62
[2019-08-28] MEDS: SODIUM CHLORIDE FLUSH 10ML SYR IVF SCH ×2 (08:58→19:54)
[2019-08-28] MEDS ORDERED: FLU VAC QS 19-20(4YR UP)CEL/PF 0.5 ML IM-VACC ONE (12:30)
[2019-08-28 13:34] VITALS: BP 117/69
[2019-08-28] MEDS ORDERED: HYDR-3652 PO (16:39)
[2019-08-28] MEDS ORDERED: DOCU-131 PO (16:42)
[2019-08-28] MEDS ORDERED: ONDA4TAB7 PO (16:43)
[2019-08-28 19:47] VITALS: BP 135/81
[2019-08-28] MEDS: NICOTINE 14MG/24 HR PATCH.TD24 TD SCH (20:56)
[2019-08-28] MEDS: ENOXAPARIN 40 MG/0.4 ML SQ SCH (20:58)
[2019-08-29 00:33] VITALS: BP 127/74
[2019-08-29] MEDS: HYDROcodone/APAP 5/325 TABLET PO PRN ×2 (04:51→12:46)
[2019-08-29 07:22] VITALS: BP 121/77
[2019-08-29 08:55] LABS: CLOSTRIDIUM DIFFICILE ANTIGEN NEGATIVE; CLOSTRIDIUM DIFFICILE TOXIN NEGATIVE (Negative)
[2019-08-29] MEDS: SODIUM CHLORIDE FLUSH 10ML SYR IVF SCH (09:00)
[2019-08-29 13:42] VITALS: BP 154/76
[2019-08-29 14:19] VITALS: BP 131/84
[2019-08-29] MEDS ORDERED: HYDR-3240 PO (15:51)
== END 2019-08-29 16:15 | disposition home or self-care (01) ==
LOC: OR 15:47 → EDIP 16:06 → UNDOADMIN 16:06 → OUT 16:06 → 4NW 18:45 → EDIP 18:45 → DCLOUNGE 08-29 16:00 → 4NW 08-29 16:00 → OUT 08-29 16:15 → UNDODISIN 08-29 16:15
PROVIDERS: ATTEND Surgery
DX: K35.30 Acute appendicitis with localized peritonitis, without perforation or gangrene (principal); Z23 Encounter for immunization; I10 Essential (primary) hypertension; G43.909 Migraine, unspecified, not intractable, without status migrainosus; N19 Unspecified kidney failure; F17.210 Nicotine dependence, cigarettes, uncomplicated; Z79.899 Other long term (current) drug therapy; Z88.0 Allergy status to penicillin; Z88.1 Allergy status to other antibiotic agents
CPT/HCPCS: 36415; 44970; 74176; 80053; 81003; 85025; 87324; 88304; 90674; 96365; 96375; 99285; G0008; J0171; J0330; J1100; J1650; J1885; J2250; J2270; J2405; J2704; J3010; J3480; J3490; 90471; G0378

== ENCOUNTER 2019-10-03 01:11 | Emergency (ER) | payer MEDICAID ==
[~2019-10-03] VITALS: Ht 180.3 cm; Wt 91.9 kg
[~2019-10-03 01:11] MED LIST changes: +DOCU-131 PO; +HYDR-3240 PO; +HYDR-3652 PO; +ONDA4TAB7 PO
[2019-10-03 01:13] VITALS: BP 153/105
[2019-10-03] MEDS ORDERED: KETOROLAC 60 MG/2 ML IM ONE (01:30)
[2019-10-03] MEDS ORDERED: DIHYDROERGOTAMINE 1 MG/ML, 1ML IM ONE (01:30)
[2019-10-03] MEDS ORDERED: PROCHLORPERAZINE 5 MG/ML, 2ML IM ONE (01:30)
[2019-10-03] MEDS ORDERED: DIPHENHYDRAMINE 25 MG CAPSULE PO ONE (01:30)
[2019-10-03] MEDS ORDERED: SUMATRIPTAN 6MG/0.5ML SQ ONE ×2 (01:30→01:40)
[2019-10-03] MEDS ORDERED: PROCHLORPERAZINE 5 MG/ML, 2ML ONE (01:40)
[2019-10-03] MEDS ORDERED: DIPHENHYDRAMINE 25 MG CAPSULE ONE (01:40)
[2019-10-03] MEDS ORDERED: KETOROLAC 60 MG/2 ML ONE (01:40)
== END 2019-10-03 02:48 | disposition home or self-care (01) ==
LOC: ED 02:30
DX: G43.009 Migraine without aura, not intractable, without status migrainosus (principal); F17.210 Nicotine dependence, cigarettes, uncomplicated
CPT/HCPCS: 70450; 96372; 99284; J0780; J1885; J3030; Q0163

== ENCOUNTER 2019-10-13 06:49 | Emergency (ER) | payer MEDICAID ==
[~2019-10-13] VITALS: Ht 172.7 cm; Wt 80.0 kg
--- NOTE | 2019-10-13 06:55 | NUR ---
PATIENT BROUGHT IN BY [facility] WITH CHIEF COMPLAINT OF DOOLEY SINCE MONDAY NIGHT. PATIENT DENIES RECENT ILLNESS, NO FEVER, SOB, CP, OR RECENT TRAUMA. INTERMITTENT NAUSEA WITH DOOLEY. THE PATIENT IS ALERT, ORIENTED, WARM AND DRY.
[2019-10-13] MEDS ORDERED: SODIUM CHLORIDE 0.9% 1,000ML IVBOLUS ONE (07:00)
[2019-10-13] MEDS ORDERED: DIPHENHYDRAMINE 50 MG/ML, 1ML IVPush ONE (07:00)
[2019-10-13] MEDS ORDERED: SODIUM CHLORIDE FLUSH 10ML SYR IVF ONE (07:00)
[2019-10-13] MEDS ORDERED: KETOROLAC 30 MG/1 ML IVPush ONE (07:00)
[2019-10-13] MEDS ORDERED: PROCHLORPERAZINE 5 MG/ML, 2ML IVPush ONE (07:00)
[2019-10-13] MEDS ORDERED: PROCHLORPERAZINE 5 MG/ML, 2ML ONE (07:08)
[2019-10-13] MEDS ORDERED: KETOROLAC 30 MG/1 ML ONE (07:09)
[2019-10-13] MEDS ORDERED: DIPHENHYDRAMINE 50 MG/ML, 1ML ONE (07:09)
[2019-10-13 07:23] LABS: BASOPHILS # (AUTO) 0.07 x10^3/uL (0-0.1); BASOPHILS % (AUTO) 1 % (0-1); EOSINOPHILS # (AUTO) 0.16 x10^3/uL (0-0.4); EOSINOPHILS % (AUTO) 2 % (1-7); LYMPHOCYTES # (AUTO) 2.46 x10^3/uL (1-3.4); LYMPHOCYTES % (AUTO) 29 % (22-44); MD NO; MEAN CORPUSCULAR HEMOGLOBIN 31.1 pg (27.5-34.5); MEAN CORPUSCULAR HGB CONC 33.7 g/dL (33.2-36.2); MEAN CORPUSCULAR VOLUME 92.2 fL (81-97); MEAN PLATELET VOLUME 6.4 fL (7.4-10.4); MONOCYTES # (AUTO) 0.65 x10^3/uL (0.2-0.8); MONOCYTES % (AUTO) 8 % (2-9); NEUTROPHILS # (AUTO) 5.11 x10^3/uL (1.8-6.8); NEUTROPHILS % (AUTO) 61 % (42-75); PLATELET COUNT 377 x10^3/uL (130-400); RED BLOOD COUNT 5.48 x10^6/uL (4.38-5.82); RED CELL DISTRIBUTION WIDTH 13.3 % (9.4-14.8)
[2019-10-13 07:35] LABS: ALANINE AMINOTRANSFERASE 57 U/L (12-78); ANION GAP 7 mmol/L (5-15); CALCIUM 9.7 mg/dL (8.5-10.1); CHLORIDE 106 mmol/L (98-107); CREATININE 0.95 mg/dL (0.7-1.3)
[2019-10-13 07:37] LABS: ALKALINE PHOSPHATASE 57 U/L (45-117); BILIRUBIN,TOTAL 0.5 mg/dL (0.2-1.0); TOTAL PROTEIN 8.2 g/dL (6.4-8.2)
--- NOTE | 2019-10-13 08:01 | NUR ---
PT TO IMAGING
[2019-10-13] MEDS ORDERED: GADOTERATE 10 MMOL/20 ML SYR ONE (08:30)
--- NOTE | 2019-10-13 08:49 | NUR ---
PT BACK FROM IMAGING, RESTING IN BED.
--- NOTE | 2019-10-13 09:21 | NUR ---
[facility] CONSULT TO NEUROLOGY
--- NOTE | 2019-10-13 10:18 | NUR ---
PT RESTING IN BED
--- NOTE | 2019-10-13 11:07 | NUR ---
[facility] PA AT BEDSIDE TO DISCUSS POC. EMESIS AND DOOLEY RESOLVED
[2019-10-13 11:08] VITALS: BP 110/61
--- NOTE | 2019-10-13 11:28 | NUR ---
DISCHARGE INSTRUCTIONS REVIEWED.
== END 2019-10-13 11:30 | disposition home or self-care (01) ==
LOC: ED 07:57
DX: R51 Headache (principal); R11.2 Nausea with vomiting, unspecified; I10 Essential (primary) hypertension; Z21 Asymptomatic human immunodeficiency virus [HIV] infection status; Z90.89 Acquired absence of other organs; Z88.0 Allergy status to penicillin; Z88.1 Allergy status to other antibiotic agents
CPT/HCPCS: 36415; 70553; 80053; 85025; 96361; 96374; 96375; 99284; A9575; J0780; J1200; J1885; J7030

== ENCOUNTER 2019-11-16 01:49 | Emergency (ER) | payer MEDICAID ==
[~2019-11-16] VITALS: Ht 180.3 cm; Wt 93.7 kg
[2019-11-16] MEDS ORDERED: KETOROLAC 30 MG/1 ML IVPush ONE (02:00)
[2019-11-16] MEDS ORDERED: PROCHLORPERAZINE 5 MG/ML, 2ML IVPush ONE (02:00)
[2019-11-16] MEDS ORDERED: DIPHENHYDRAMINE 50 MG/ML, 1ML IVPush ONE (02:00)
[2019-11-16] MEDS ORDERED: PROCHLORPERAZINE 5 MG/ML, 2ML ONE (02:11)
[2019-11-16] MEDS ORDERED: DIPHENHYDRAMINE 50 MG/ML, 1ML ONE (02:11)
[2019-11-16] MEDS ORDERED: KETOROLAC 30 MG/1 ML ONE (02:11)
[2019-11-16 02:14] LABS: BASOPHILS # (AUTO) 0.03 x10^3/uL (0-0.1); BASOPHILS % (AUTO) 1 % (0-1); EOSINOPHILS # (AUTO) 0.23 x10^3/uL (0-0.4); EOSINOPHILS % (AUTO) 4 % (1-7); LYMPHOCYTES # (AUTO) 2.85 x10^3/uL (1-3.4); LYMPHOCYTES % (AUTO) 45 % (22-44); MD NO; MEAN CORPUSCULAR HEMOGLOBIN 30.7 pg (27.5-34.5); MEAN CORPUSCULAR HGB CONC 33.6 g/dL (33.2-36.2); MEAN CORPUSCULAR VOLUME 91.2 fL (81-97); MEAN PLATELET VOLUME 6.6 fL (7.4-10.4); MONOCYTES # (AUTO) 0.43 x10^3/uL (0.2-0.8); MONOCYTES % (AUTO) 7 % (2-9); NEUTROPHILS # (AUTO) 2.85 x10^3/uL (1.8-6.8); NEUTROPHILS % (AUTO) 45 % (42-75); PLATELET COUNT 364 x10^3/uL (130-400); RED BLOOD COUNT 5.11 x10^6/uL (4.38-5.82); RED CELL DISTRIBUTION WIDTH 12.9 % (9.4-14.8)
[2019-11-16 02:25] LABS: ALBUMIN 3.6 g/dL (3.4-5.0); ANION GAP 5 mmol/L (5-15); CALCIUM 8.8 mg/dL (8.5-10.1); CHLORIDE 109 mmol/L (98-107); CREATININE 1.08 mg/dL (0.7-1.3)
--- NOTE | 2019-11-16 02:31 | NUR ---
Pt bib [facility] with c/o severe 8/10 DOOLEY that woke him up from sleep approx 0100 this AM. Pt states hx of migraines but this is different than his normal migraine. Pt later states that he has had 1-2 episodes of similar presentation. Pt is A&Ox4. Clear speech. 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 Pupils PATRIC. Per EMS, initial presentation pt had difficulty finding words--resolved. Pt also c/o numbness to R face and L arm. Pt also with intermittent L arm pain. ERP did rapid assessment prior to pt rooming from EMS, ok for pt to go to . No code neuro. After ERP eval, pt with congested cough. States has been productive for approx 2-3 weeks. Pt also states subjective fever last weekend. Discussed with ERP and order for portable chest xray received. Pt medicated per DEC for migraine. Warm blanket given. Call light in reach. Report to [facility].
[2019-11-16 04:10] VITALS: BP 127/78
== END 2019-11-16 04:13 | disposition home or self-care (01) ==
LOC: ED 02:09
DX: G43.109 Migraine with aura, not intractable, without status migrainosus (principal); R05 Cough; F17.200 Nicotine dependence, unspecified, uncomplicated; I10 Essential (primary) hypertension
CPT/HCPCS: 36415; 71045; 80048; 82040; 85025; 93005; 96374; 96375; 99284; J0780; J1200; J1885

== ENCOUNTER 2019-12-10 23:54 | Emergency (ER) | payer MEDICAID ==
[~2019-12-10] VITALS: Ht 180.3 cm; Wt 91.7 kg
[2019-12-11] MEDS ORDERED: PROCHLORPERAZINE 5 MG/ML, 2ML ONE (00:43)
[2019-12-11] MEDS ORDERED: DIPHENHYDRAMINE 50 MG/ML, 1ML ONE (00:43)
[2019-12-11] MEDS ORDERED: KETOROLAC 30 MG/1 ML ONE (00:43)
[2019-12-11] MEDS ORDERED: ONDANSETRON 2MG/ML, 2ML ONE (00:43)
[2019-12-11 00:55] VITALS: BP 126/81
[2019-12-11] MEDS ORDERED: SODIUM CHLORIDE 0.9% 1,000ML IVBOLUS ONE (01:00)
[2019-12-11] MEDS ORDERED: ACETAMINOPHEN 325 MG TABLET PO ONE (01:00)
[2019-12-11] MEDS ORDERED: DIPHENHYDRAMINE 50 MG/ML, 1ML IVPush ONE (01:00)
[2019-12-11] MEDS ORDERED: ONDANSETRON 2MG/ML, 2ML IVPush ONE (01:00)
[2019-12-11] MEDS ORDERED: KETOROLAC 30 MG/1 ML IVPush ONE (01:00)
[2019-12-11] MEDS ORDERED: PROCHLORPERAZINE 5 MG/ML, 2ML IVPush ONE (01:00)
== END 2019-12-11 02:09 | disposition home or self-care (01) ==
LOC: ED 12-11
DX: R51 Headache (principal); R11.2 Nausea with vomiting, unspecified; M54.2 Cervicalgia; F17.200 Nicotine dependence, unspecified, uncomplicated; I10 Essential (primary) hypertension
CPT/HCPCS: 96361; 96374; 96375; 99284; J0780; J1200; J1885; J2405; J7030

== ENCOUNTER 2020-12-16 16:55 | Emergency (ER) | payer MEDICAID ==
[~2020-12-16] VITALS: Ht 180.3 cm; Wt 84.0 kg
[~2020-12-16 16:55] MED LIST changes: -CYCL-259 PO; +CYCL10TA2 PO; +HYDR-1067 PO; -HYDR-3240 PO; -HYDR-3652 PO
--- NOTE | 2020-12-16 17:53 | NUR ---
PT IN BED , VSS,
[2020-12-16 17:54] VITALS: BP 122/68
== END 2020-12-16 19:05 | disposition home or self-care (01) ==
LOC: ED 18:58
DX: J18.9 Pneumonia, unspecified organism (principal); Z20.822 Contact with and (suspected) exposure to COVID-19; R94.31 Abnormal electrocardiogram [ECG] [EKG]; F17.210 Nicotine dependence, cigarettes, uncomplicated; I10 Essential (primary) hypertension; Z21 Asymptomatic human immunodeficiency virus [HIV] infection status; Z90.89 Acquired absence of other organs
CPT/HCPCS: 71045; 87635; 93005; 99285; 99406

== ENCOUNTER 2021-01-14 10:42 | Emergency (ER) | payer MEDICAID ==
[~2021-01-14] VITALS: Ht 180.3 cm; Wt 79.7 kg
[2021-01-14 11:49] VITALS: BP 139/79
== END 2021-01-14 11:50 | disposition home or self-care (01) ==
LOC: ED 11:02
DX: S90.111A Contusion of right great toe without damage to nail, initial encounter (principal); I10 Essential (primary) hypertension; G43.909 Migraine, unspecified, not intractable, without status migrainosus; X58.XXXA Exposure to other specified factors, initial encounter; Y93.89 Activity, other specified; Y92.89 Other specified places as the place of occurrence of the external cause; Y99.8 Other external cause status
CPT/HCPCS: 99283

== ENCOUNTER 2021-05-26 09:44 | Emergency (ER) | payer MEDICAID ==
[~2021-05-26] VITALS: Ht 180.3 cm; Wt 75.2 kg
[~2021-05-26 09:44] MED LIST changes: +HYDR-2214 PO
[2021-05-26 09:49] VITALS: BP 138/81
[2021-05-26 11:05] LABS: BASOPHILS % (AUTO) 0 % (0-1); EOSINOPHILS % (AUTO) 2 % (1-7); LYMPHOCYTES % (AUTO) 37 % (22-44); MEAN CORPUSCULAR HEMOGLOBIN 30.8 pg (27.5-34.5); MEAN CORPUSCULAR HGB CONC 33.9 g/dL (33.2-36.2); MEAN PLATELET VOLUME 6.4 fL (7.4-10.4); MONOCYTES % (AUTO) 9 % (2-9); NEUTROPHILS % (AUTO) 51 % (42-75); PLATELET COUNT 348 x10^3/uL (130-400); RED BLOOD COUNT 4.55 x10^6/uL (4.38-5.82); RED CELL DISTRIBUTION WIDTH 12.6 % (9.4-14.8)
[2021-05-26 11:06] LABS: ALANINE AMINOTRANSFERASE 37 U/L (12-78); ALBUMIN 3.3 g/dL (3.4-5.0); ANION GAP 6 mmol/L (5-15); CALCIUM 8.8 mg/dL (8.5-10.1); CHLORIDE 105 mmol/L (98-107); CREATININE 0.65 mg/dL (0.7-1.3)
[2021-05-26 11:08] LABS: ALKALINE PHOSPHATASE 102 U/L (45-117); BILIRUBIN,TOTAL 0.3 mg/dL (0.2-1.0); TOTAL PROTEIN 7.4 g/dL (6.4-8.2)
[2021-05-26 11:54] LABS: MICROSCOPIC INDICATED
== END 2021-05-26 14:08 | disposition home or self-care (01) ==
LOC: ED 10:14
DX: R31.29 Other microscopic hematuria (principal); R30.0 Dysuria; L03.311 Cellulitis of abdominal wall; K59.00 Constipation, unspecified; R00.0 Tachycardia, unspecified; I10 Essential (primary) hypertension; G43.909 Migraine, unspecified, not intractable, without status migrainosus
CPT/HCPCS: 36415; 74176; 80053; 81001; 85025; 99284

== ENCOUNTER 2021-06-26 08:41 | Emergency (ER) | payer MEDICAID ==
[~2021-06-26] VITALS: Ht 180.3 cm; Wt 73.8 kg
[2021-06-26 08:51] VITALS: BP 129/81
[2021-06-26 09:26] LABS: BASOPHILS % (AUTO) 1 % (0-1); EOSINOPHILS % (AUTO) 2 % (1-7); LYMPHOCYTES % (AUTO) 26 % (22-44); MEAN CORPUSCULAR HGB CONC 33.8 g/dL (33.2-36.2); MEAN PLATELET VOLUME 6.4 fL (7.4-10.4); MONOCYTES % (AUTO) 6 % (2-9); NEUTROPHILS % (AUTO) 66 % (42-75); PLATELET COUNT 356 x10^3/uL (130-400); RED BLOOD COUNT 4.85 x10^6/uL (4.38-5.82); RED CELL DISTRIBUTION WIDTH 13.3 % (9.4-14.8)
[2021-06-26 09:39] LABS: ALANINE AMINOTRANSFERASE 30 U/L (12-78); ALBUMIN 3.7 g/dL (3.4-5.0); ANION GAP 5 mmol/L (5-15); CALCIUM 9.4 mg/dL (8.5-10.1); CHLORIDE 102 mmol/L (98-107); CREATININE 0.73 mg/dL (0.7-1.3)
[2021-06-26 09:42] LABS: ALKALINE PHOSPHATASE 78 U/L (45-117); BILIRUBIN,TOTAL 0.3 mg/dL (0.2-1.0); TOTAL PROTEIN 7.9 g/dL (6.4-8.2)
--- NOTE | 2021-06-26 09:58 | NUR ---
PT TO ROOM FROM LOBBY. NAD.
--- NOTE | 2021-06-26 10:18 | NUR ---
PT TO RADIOLOGY VIA [facility]. PT REPORTS BEING UNABLE TO VOID AT THIS TIME FOR UA SPECIMEN. PT INSTRUCTED ON SPECIMENT COLLECTION, CUP LEFT IN PT'S BATHROOM INSIDE ER ROOM 8. PT WILL ATTEMPT TO VOID UPON RETURN TO ROOM.
--- NOTE | 2021-06-26 10:37 | NUR ---
UA TO LAB
[2021-06-26 11:31] LABS: MICROSCOPIC INDICATED
--- NOTE | 2021-06-26 12:10 | NUR ---
PT PROVIDED NEW PAIR OF SWEATPANTS AND T-SHIRT FROM [employer] PT HAS SOILED HIMSELF IN HIS OWN CLOTHING. AT TIME OF DISCHARGE PT THEN STATED, "YOU NEED TO GET ME A PAIR OF UNDERWEAR TOO." THIS RN EXPLAINED THAT WE DO NOT HAVE UNDERWEAR TO GIVE OUT AND OFFERED DIAPER. PT DECLINED. ATTMEPTED TO PROVIDE DC INSTRUCTIONS TO PT, PT UNWILLING TO LEARN AT THIS TIME CONTINUING TO STATE THAT THIS RN IS, "UNCARING AND YOU NEED TO JUST GIVE ME A PAIR OF UNDERWEAR. WHAT AM I SUPPOSED TO DO, WALK AROUND WITH SHIT IN MY PANTS? FINE, I'LL JUST GO INTO THE BATHROOM THERE AND SMEAR IT ALL AROUND." THIS RN EXPLAINED THAT OFFER FOR DIAPER STANDS AND THAT HE HAS BEEN PROVIDED A NEW, CLEAN OUTFIT (DOWNING SWEATPANTS AND T-SHIRT). PT REMAINS UNWILLING TO DISCUSS DC PLAN. SECURITY CALLED TO ESCORT PT OUT.
--- NOTE | 2021-06-26 12:16 | NUR ---
AT TIME OF DC PT DID NOT CHANGE INTO CLEAN CLOTHS PROVIDED BUT INSTEAD PACKED THEM INTO HIS BACKPACK. PRIOR TO SECURITY ARRIVAL PT ALSO TOOK BOX OF GLOVES OFF THE WALL AND PLACED IT INTO HIS BELONGINGS.
== END 2021-06-26 12:18 | disposition home or self-care (01) ==
LOC: ED 11:04
DX: K52.9 Noninfective gastroenteritis and colitis, unspecified (principal); I10 Essential (primary) hypertension
CPT/HCPCS: 36415; 74021; 80053; 81001; 85025; 87086; 99284